=== PATIENT | female | born 1975 | race African-American/Black ===

== ENCOUNTER 2018-07-09 20:42 | Emergency (ER) | payer BC, OTHER ==
[~2018-07-09] VITALS: Ht 180.3 cm; Wt 73.5 kg
[~2018-07-09 20:42] MED LIST: NONE PER PT
[2018-07-09] MEDS ORDERED: KETOROLAC 30 MG/1 ML ONE (21:43)
[2018-07-09] MEDS ORDERED: DIAZEPAM 5 MG TABLET ONE (21:43)
--- NOTE | 2018-07-09 21:47 | NUR ---
PT TAKEN TO RAD
[2018-07-09] MEDS ORDERED: DIAZEPAM 5 MG TABLET PO ONE (22:00)
[2018-07-09] MEDS ORDERED: KETOROLAC 30 MG/1 ML IM ONE (22:00)
--- NOTE | 2018-07-09 22:00 | NUR ---
PT BACK FROM RAD. MEDICATED PER APR FOR RIGHT HIP PAIN. PT ASSISTED TO RESTROOM, LIMPING ON RIGHT SIDE. CONNECTED TO MONITORING, VSS. BLANKETS PROVIDED FOR COMFORT. FAMILY AT BEDSIDE. CALL LIGHT WITHIN REACH.
[2018-07-09 22:19] VITALS: BP 115/78
--- NOTE | 2018-07-09 22:30 | NUR ---
PT TAKEN TO CT
--- NOTE | 2018-07-09 22:59 | NUR ---
ALL RESULTS BACK, AWAITING RECHECK AT THIS TIME
--- NOTE | 2018-07-09 23:06 | NUR ---
MD AT BEDSIDE TO UPDATE PT AND FAMILY ON POC
== END 2018-07-09 23:59 | disposition home or self-care (01) ==
LOC: ED 21:26
DX: M62.838 Other muscle spasm (principal); G89.11 Acute pain due to trauma; M25.552 Pain in left hip; V49.49XA Driver injured in collision with other motor vehicles in traffic accident, initial encounter; Y93.89 Activity, other specified; Y92.410 Unspecified street and highway as the place of occurrence of the external cause; Y99.8 Other external cause status
CPT/HCPCS: 72192; 73502; 73700; 96372; 99284; J1885

== ENCOUNTER 2018-07-12 09:06 | Emergency (ER) | payer BC, OTHER ==
[~2018-07-12] VITALS: Ht 180.3 cm; Wt 72.0 kg
--- NOTE | 2018-07-12 09:42 | NUR ---
TO ROOM FROM LOBBY. NAD.
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
--- NOTE | 2018-07-12 10:08 | NUR ---
PT TAKEN TO CT IN STABLE CONDITION.
[2018-07-12] MEDS ORDERED: KETOROLAC 30 MG/1 ML ONE (10:20)
[2018-07-12] MEDS ORDERED: DIAZEPAM 5 MG TABLET ONE (10:20)
[2018-07-12] MEDS ORDERED: DIAZEPAM 5 MG TABLET PO ONE (10:30)
[2018-07-12] MEDS ORDERED: KETOROLAC 30 MG/1 ML IM ONE (10:30)
--- NOTE | 2018-07-12 10:46 | NUR ---
REPORT GIVEN TO PRAKASH CASTORENA.
--- NOTE | 2018-07-12 10:51 | NUR ---
REPORT RECEIVED FROM CALIXTO RANDALL.
[2018-07-12 11:05] VITALS: BP 131/86
--- NOTE | 2018-07-12 11:06 | NUR ---
pt given dc instructions and script. pt educated regarding dc medication. pt's aox4. resps even and unlabored. pt amb to dc with steady gait. no acute distress at dc.
== END 2018-07-12 11:07 | disposition home or self-care (01) ==
LOC: ED 10:13
DX: S16.1XXA Strain of muscle, fascia and tendon at neck level, initial encounter (principal); F17.210 Nicotine dependence, cigarettes, uncomplicated; V49.49XA Driver injured in collision with other motor vehicles in traffic accident, initial encounter; Y93.89 Activity, other specified; Y92.89 Other specified places as the place of occurrence of the external cause; Y99.8 Other external cause status
CPT/HCPCS: 70450; 72125; 96372; 99284; J1885